=== PATIENT | male | born 1980 | race Caucasian/White ===

== ENCOUNTER 2020-08-10 15:57 | Emergency (ER) | payer MEDICAID ==
[~2020-08-10] VITALS: Ht 185.4 cm; Wt 115.9 kg
[2020-08-10 16:07] VITALS: BP 141/87
== END 2020-08-10 17:48 | disposition home or self-care (01) ==
LOC: ER 15:58
DX: H72.91 Unspecified perforation of tympanic membrane, right ear (principal)
CPT/HCPCS: 99282

== ENCOUNTER 2021-05-03 18:25 | Emergency (ER) | payer MEDICAID ==
[~2021-05-03] VITALS: Ht 185.4 cm; Wt 108.9 kg
[2021-05-03 18:39] VITALS: BP 120/80
== END 2021-05-03 20:28 | disposition home or self-care (01) ==
LOC: ER 18:25
DX: R21 Rash and other nonspecific skin eruption (principal); T39.1X5A Adverse effect of 4-Aminophenol derivatives, initial encounter; Y92.89 Other specified places as the place of occurrence of the external cause
CPT/HCPCS: 99284